=== PATIENT | male | born 1980 | race Caucasian/White ===

== ENCOUNTER → 2021-08-22 | Outpatient (CLI) | payer OTHER ==
[~2021-08-22] MED LIST: IOHEXOL 240 MG/ML 50ML VIAL. PO ONE; IOHEXOL 300 MG/ML 100ML VIAL. IV ONE
--- NOTE | 2021-08-23 08:20 | KCIC ---
EXAM: CT Abdomen and Pelvis with IV contrast CLINICAL HISTORY: Reason: Rectal pain, scrotal, testicular pain, LLQ pain. Symptoms a few weeks.. COMPARISON: none TECHNIQUE: Helical CT of the abdomen and pelvis was performed following the administration of intrave nous contrast. Axial, coronal and sagittal reformatted images were generated. PQRS compliance statement - One or more of the following individualized dose reduction techniques wer e utilized for this study: 1. Automated exposure control 2. Adjustment of the mA and/or kV according to patient size 3. Use of iterative reconstruction technique FINDINGS: Lower Chest: Thickening of the posterior left lower pole. Otherwise lung bases are clear. Abdomen and Pelvis: No focal liver lesion. Gallbladder is normal. Pancreas, spleen and adrenal glands are unremarkable. Symmetric nephrograms. No focal renal lesion. No hydronephrosis. No hydroureter. Bladder is unremarka ble. Appendix is normal. Moderate colonic stool content. No small or large bowel dilatation. No bowel obst ruction. Trace fat-containing periumbilical hernia is seen. No abdominal or pelvic lymphadenopathy. No abdomin al pelvic ascites. Of note the scrotum is not included in the [id number]. No aggressive osseous lesion. Mild right hip joint degenerative change. Sclerotic focus left proximal femur likely bone island. IMPRESSION: 1. The scrotum is not entirely included in the [id number] although the visualized pelvis is gross ly unremarkable without mass, lymphadenopathy or ascites. Given history of scrotal pain this can be f urther assessed with scrotal ultrasound if clinically indicated. 2. Moderate colonic stool content. No bowel obstruction. Electronically signed by: Darryl Beltran MD (08/23/2021 8:18 AM) [facility]
== END ==
LOC: KCIC CT 12:44
PROVIDERS: ATTEND Family Medicine
DX: R10.9 Unspecified abdominal pain (principal); M16.11 Unilateral primary osteoarthritis, right hip
CPT/HCPCS: 74177; Q9966; Q9967